=== PATIENT | female | born 1985 | race Asian ===

== ENCOUNTER 2018-05-13 16:26 | Inpatient (IN) | payer OTHER ==
[~2018-05-13] VITALS: Ht 154.9 cm; Wt 70.4 kg
[2018-05-13] MEDS ORDERED: PREN1TAB10 PO (16:39)
[2018-05-13] MEDS ORDERED: CHOL500045 PO (17:00)
[2018-05-13] MEDS ORDERED: D5%-LACTATED RINGERS 1,000 ML IV SCH (17:08)
[2018-05-13] MEDS ORDERED: OXYTOCIN 30U/ 0.9% NaCL 500ML 500 ML IV ONE (17:08)
[2018-05-13] MEDS ORDERED: NEWBORN KIT ONE (17:14)
[2018-05-13] MEDS ORDERED: LIDOCAINE/PF 1%, 30ML ONE (17:15)
[2018-05-13] MEDS ORDERED: OXYTOCIN 30U/ 0.9% NaCL 500ML 500 ML ONE (17:15)
[2018-05-13] MEDS ORDERED: MISOPROSTOL 200 MCG TABLET ONE (17:15)
[2018-05-13] MEDS ORDERED: FENTANYL PF 100 MCG/2ML IV PRN (17:30)
[2018-05-13] MEDS ORDERED: ONDANSETRON 2MG/ML, 2ML IVPush PRN (17:30)
[2018-05-13] MEDS: LACTATED RINGERS 1,000 ML IV SCH (17:39)
[2018-05-13 18:04] LABS: BASOPHILS # (AUTO) 0.02 x10^3/uL (0-0.1); BASOPHILS % (AUTO) 0 % (0-1); EOSINOPHILS # (AUTO) 0.08 x10^3/uL (0-0.4); EOSINOPHILS % (AUTO) 1 % (1-7); LYMPHOCYTES # (AUTO) 1.37 x10^3/uL (1-3.4); LYMPHOCYTES % (AUTO) 23 % (22-44); MD NO; MEAN CORPUSCULAR HEMOGLOBIN 31.4 pg (27.0-34.8); MEAN CORPUSCULAR HGB CONC 33.8 g/dL (32.4-35.8); MEAN CORPUSCULAR VOLUME 92.8 fL (80-100); MEAN PLATELET VOLUME 8.8 fL (7.4-10.4); MONOCYTES # (AUTO) 0.33 x10^3/uL (0.2-0.8); MONOCYTES % (AUTO) 6 % (2-9); NEUTROPHILS % (AUTO) 69 % (42-75); PLATELET COUNT 231 x10^3/uL (130-400); RED BLOOD COUNT 3.98 x10^6/uL (3.82-5.3)
[2018-05-14] MEDS ORDERED: OXYTOCIN 30U/ 0.9% NaCL 500ML 0 ML ONE (01:30)
[2018-05-14 08:03] VITALS: BP 112/70
[2018-05-14] MEDS ORDERED: OXYTOCIN 30U/ 0.9% NaCL 500ML 500 ML ONE (09:16)
[2018-05-14] MEDS ORDERED: OXYTOCIN 30U/ 0.9% NaCL 500ML 500 ML IV PRN (09:30)
[2018-05-14] MEDS: LACTATED RINGERS 1,000 ML IV SCH (10:36)
[2018-05-14 11:55] VITALS: BP 105/64
[2018-05-14] MEDS ORDERED: FENTANYL PF 100 MCG/2ML ONE ×2 (12:14→13:17)
[2018-05-14] MEDS: FENTANYL PF 100 MCG/2ML IVPush PRN ×2 (12:18→13:20)
[2018-05-14] MEDS: OXYTOCIN 30U/ 0.9% NaCL 500ML 500 ML IV SCH (14:42)
[2018-05-14] MEDS ORDERED: ONDANSETRON 2MG/ML, 2ML IV PRN (15:00)
[2018-05-14] MEDS ORDERED: MISOPROSTOL 200 MCG TABLET PO PRN (15:00)
[2018-05-14] MEDS ORDERED: MAGNESIUM HYDROXIDE 8%, 30ML UDC PO PRN (15:00)
[2018-05-14] MEDS ORDERED: OXYcodone/APAP 5/325MG TABLET PO PRN ×2 (15:00)
[2018-05-14 16:15] VITALS: BP 99/63
[2018-05-14] MEDS: IBUPROFEN 600 MG TABLET PO PRN ×2 (16:34→23:50)
[2018-05-14 20:00] VITALS: BP 100/62
[2018-05-14] MEDS: DOCUSATE 100 MG CAPSULE PO SCH (20:42)
[2018-05-14 22:36] LABS: BASOPHILS # (AUTO) 0.03 x10^3/uL (0-0.1); BASOPHILS % (AUTO) 0 % (0-1); EOSINOPHILS # (AUTO) 0.04 x10^3/uL (0-0.4); EOSINOPHILS % (AUTO) 0 % (1-7); LYMPHOCYTES # (AUTO) 1.53 x10^3/uL (1-3.4); LYMPHOCYTES % (AUTO) 16 % (22-44); MD NO; MEAN CORPUSCULAR HEMOGLOBIN 31.8 pg (27.0-34.8); MEAN CORPUSCULAR HGB CONC 34.3 g/dL (32.4-35.8); MEAN CORPUSCULAR VOLUME 92.8 fL (80-100); MEAN PLATELET VOLUME 8.2 fL (7.4-10.4); MONOCYTES # (AUTO) 0.36 x10^3/uL (0.2-0.8); MONOCYTES % (AUTO) 4 % (2-9); NEUTROPHILS # (AUTO) 7.34 x10^3/uL (1.8-6.8); NEUTROPHILS % (AUTO) 79 % (42-75); PLATELET COUNT 197 x10^3/uL (130-400); RED BLOOD COUNT 3.23 x10^6/uL (3.82-5.3); RED CELL DISTRIBUTION WIDTH 13.1 % (9.6-15.2)
[2018-05-15 00:30] VITALS: BP 121/79
[2018-05-15] MEDS: OXYTOCIN 30U/ 0.9% NaCL 500ML 500 ML IV SCH ×3 (00:42→20:42)
[2018-05-15 04:55] VITALS: BP_SYST 124
[2018-05-15 08:20] VITALS: BP 120/80
[2018-05-15] MEDS: IBUPROFEN 600 MG TABLET PO PRN ×3 (08:22→23:20)
[2018-05-15] MEDS: PRENATAL VIT/IRON/FA 1 EACH TABLET PO SCH (08:22)
[2018-05-15] MEDS: DOCUSATE 100 MG CAPSULE PO SCH ×2 (08:22→21:00)
[2018-05-15 20:50] VITALS: BP 116/76
[2018-05-16] MEDS: OXYTOCIN 30U/ 0.9% NaCL 500ML 500 ML IV SCH (06:42)
[2018-05-16] MEDS: DOCUSATE 100 MG CAPSULE PO SCH (07:36)
[2018-05-16] MEDS: IBUPROFEN 600 MG TABLET PO PRN (07:37)
[2018-05-16] MEDS: PRENATAL VIT/IRON/FA 1 EACH TABLET PO SCH (07:37)
[2018-05-16 08:07] VITALS: BP 105/72
[2018-05-16] MEDS ORDERED: DOCU-131 PO (11:20)
[2018-05-16] MEDS ORDERED: ibuprofen (11:21)
== END 2018-05-16 12:34 | disposition home or self-care (01) | DRG 768 ==
LOC: LDOP 16:26 → LDIP 17:08 → 2NW 05-14 15:57
PROVIDERS: ADMIT Obstetrics & Gynecology Maternal & Fetal Medicine; ATTEND Obstetrics & Gynecology Maternal & Fetal Medicine
PROC: 10E0XZZ Delivery of Products of Conception, External Approach (ICD-10-PCS; principal; 2018-05-14)
PROC: 0DQR0ZZ Repair Anal Sphincter, Open Approach (ICD-10-PCS; 2018-05-14)
DX: O69.3XX0 Labor and delivery complicated by short cord, not applicable or unspecified (principal); Z37.0 Single live birth; O70.20 Third degree perineal laceration during delivery, unspecified; Z3A.39 39 weeks gestation of pregnancy; Z82.3 Family history of stroke; Z82.49 Family history of ischemic heart disease and other diseases of the circulatory system; Z83.3 Family history of diabetes mellitus
CPT/HCPCS: 36415; J7121; 85025; 86850; 86900; 90656; G0378; J3010; J7120